=== PATIENT | female | born 1965 | race Two or more races ===

== ENCOUNTER 2019-07-25 12:20 | Emergency (ER) | payer OTHER ==
[~2019-07-25] VITALS: Ht 170.2 cm; Wt 77.1 kg
[2019-07-25 12:32] VITALS: BP 142/91
[2019-07-25] MEDS ORDERED: methylPREDNISolone SOD SUCC 125 MG/2 ML VL IM ONE (14:15)
[2019-07-25] MEDS ORDERED: diphenhdrAMINE HCL 25 MG CAP PO ONE (14:15)
== END 2019-07-25 14:56 | disposition home or self-care (01) ==
LOC: ER 12:20
DX: T78.40XA Allergy, unspecified, initial encounter (principal); X58.XXXA Exposure to other specified factors, initial encounter
CPT/HCPCS: 96372; 99283; J2930